=== PATIENT | male | born 1940 | race Caucasian/White ===

== ENCOUNTER 2019-02-23 12:43 | Observation (INO) ==
[~2019-02-23 12:43] MED LIST: NITROGLYCERIN TOP ONE
[2019-02-23] MEDS ORDERED: SALINE LOCK IV FLUID XX ONE (13:00)
[2019-02-23] MEDS ORDERED: TYLENOL PO PRN ×2 (13:00)
[2019-02-23] MEDS ORDERED: ZOFRAN IV PRN ×2 (13:00)
[2019-02-23] MEDS ORDERED: NS 1,000 ML IV ONE (13:00)
[2019-02-23 13:31] LABS: HEMATOCRIT 42.2 % (42.0-52.0); MCH 29.5 PG (27-31); MCHC 33.2 g/dL (33-37); MCV 88.8 FL (81-99); MPV 11.3 FL (7.4-10.4); RBC 4.75 XMIL (4.7-6.1); RDW 13.4 % (11.5-14.5); WBC 6.58 X1000 (4.8-10.8)
--- NOTE | 2019-02-23 13:39 | Diag Imaging Result Doc PS360 ---
CHEST-2 VIEWS - 02/23/2019 INDICATION: CAD COMPARISON: 10/25/2017 FINDINGS: The lungs are normally expanded and clear. Heart size and mediastinal contours are normal. No pneumothorax or pleural effusion. Stable surgical clips in the right upper quadrant. IMPRESSION: Negative exam. Electronically signed by Frantz Gauthier 02/23/2019 1:36 PM
[2019-02-23 14:05] LABS: AGAP 9; BUN 12 mg/dL (8-22); CALCIUM 9.6 mg/dL (8.8-10.2); CHLORIDE 103 mmol/L (98-107); COSMO 279; CREATININE 0.9 mg/dL (0.7-1.2); ESTIMATED GFR > 60; GLUCOSE 104 mg/dL (70-104); POTASSIUM 4.9 mmol/L (3.5-5.1); SODIUM 140 mmol/L (136-145); TCO2 28 mmol/L (25-35)
--- NOTE | 2019-02-23 14:20 | EKG Report ---
Test Performed on : 02/23/2019 1:12:33 PM Test Reason : CAD Blood Pressure : / mmHG Vent. Rate : 058 BPM Atrial Rate : 058 BPM P-R Int : 152 ms QRS Dur : 098 ms QT Int : 442 ms P-R-T Axes : 029 008 041 degrees QTc Int : 433 ms Sinus bradycardia. with frequent premature ventricular complexes. Otherwise normal ECG When compared with ECG of 25-OCT-2017 13:51, premature ventricular complexes. are now present premature atrial complexes. are no longer present Confirmed by Jim HAYDNE, Kedar Silva ([id number]) on 02/24/2019 4:19:09 PM
[2019-02-23] MEDS ORDERED: NORCO-5 PO PRN (17:52)
[2019-02-23] MEDS: LOVENOX SUBQ SCH (19:50)
[2019-02-23] MEDS ORDERED: AMBIEN PO SCH (21:00)
[2019-02-24] MEDS ORDERED: PRILOSEC PO SCH (07:00)
[2019-02-24] MEDS ORDERED: NS 500 ML IV ONE (08:13)
--- NOTE | 2019-02-24 08:42 | PROGRESS NOTE ---
DATE: 02/24/2019 SUBJECTIVE: Mr. Watkins has a history of known ischemic heart disease. He has had previous angioplasty and stenting of the LAD in 2010, and the RCA in 2014. He was admitted to [facility] for evaluation of unstable angina. He has had no further episodes of chest pain. Two sets of cardiac enzymes have been within normal limits. His pulse has been low. His pulses ranged from 44 to 51. He reports that he feels dizzy and lightheaded. He does have a history of gastroparesis. He has tried an anti gastroparetic diet without significant improvement. He had an adverse reaction to Reglan in the past. Dr. Camacho had tried domperidone 10 mg prior to each meal with improvement in his symptoms. He was not felt to be a candidate for a gastric pacemaker at [facility]. OBJECTIVE: Temperature 98.1 degrees, pulse 51, respirations 16, and BP 117/57.CV: Regular rate and rhythm. Lungs: Clear. Abdomen: Soft and nontender with active bowel sounds. ASSESSMENT AND PLAN: Unstable angina with a history of known ischemic heart disease. He has had no further episodes of chest pain. His blood pressure has been low at times during the night. Systolic blood pressures have been in the high 90s. I will stop both the Toprol-XL as well as the topical nitrates. We will proceed with a Scaleform GXT with rest stress protocol. cc: Nima Delgado MD
[2019-02-24] MEDS: ASPIRIN PO SCH ×2 (08:56→13:19)
[2019-02-24] MEDS ORDERED: DEXILANT PO SCH (09:00)
[2019-02-24] MEDS ORDERED: TOPROL XL PO SCH (09:00)
[2019-02-24] MEDS ORDERED: ASPIRIN EC PO SCH (09:00)
[2019-02-24] MEDS ORDERED: LEXISCAN ONE (11:48)
[2019-02-24] MEDS: LOVENOX SUBQ SCH (13:20)
[2019-02-24 14:00] VITALS: BP 130/69
--- NOTE | 2019-02-24 14:06 | Diag Imaging Result Document ---
PROCEDURE NAME: MYOCARDIAL PERF SCAN, STR/REST - 02/24/2019 SUMMARY: The patient was administered 12.2 mCi of technetium-99m sestamibi after which resting cardiac images were obtained. The patient subsequently was administered Lexiscan 0.4 mg intravenously after which the heart rate went from 70 beats per minute to 93 beats per minute and the blood pressure went from 166/78 to 140/70. With Lexiscan, the patient reported some midsternal chest burning, which resolved with recovery. Following administration of Lexiscan, the patient was administered 35.9 mCi of technetium-99m sestamibi, after which gated stress cardiac images were obtained. Baseline ECG demonstrated sinus bradycardia. With Lexiscan, there were no diagnostic ST-segment changes. Occasional premature ventricular complex was observed. SPECT images were reconstructed in the short, horizontal, and vertical long axis. Review of these images demonstrated moderately diminished activity in the inferior wall on stress images, which appears similar on resting images. No significant reversibility is evident. Gated images demonstrate a calculated left ventricular ejection fraction of 63% with symmetrical wall motion/thickening. CONCLUSIONS: 1. Adequate response to Lexiscan. 2. Clinically, the patient reported moderate burning chest discomfort with Lexiscan. 3. Electrocardiographically, there were no diagnostic ST-segment changes on ECG. 4. Lexiscan sestamibi images demonstrate fixed moderately diminished activity in the inferior wall with corresponding preserved regional wall motion most consistent with diaphragmatic attenuation artifact, although prior transmural inferior infarction cannot entirely be excluded. There is no convincing scintigraphic evidence of inducible myocardial ischemia. Normal left ventricular systolic function demonstrated. cc: MD Nima Duran MD
--- NOTE | 2019-02-25 13:13 | DISCHARGE SUMMARY ---
ADMISSION DATE: 02/23/2019 DISCHARGE DATE: 02/24/2019 DISCHARGE DIAGNOSES: 1. Unstable angina in the setting of known ischemic heart disease. 2. Gastroesophageal reflux disease. 3. Gastroparesis. 4. Chronic low back pain secondary to lumbar spinal stenosis. DISCHARGE INSTRUCTIONS: 1. Return to clinic in one week to see me, Dr. Riley Delgado, in anticipation of a transition of care visit. 2. Activity as tolerated. 3. Healthy heart diet. MEDICATIONS: 1. Dexilant 60 mg daily. 2. [place] 10/325 1 q.12 hours p.r.n. pain. 3. Ambien 10 mg at bedtime p.r.n. insomnia. 4. Aspirin 81 mg daily. 5. Plavix 75 mg daily. 6. Zofran 4 mg q.6 hours p.r.n. nausea. 7. Souwaynsmet19 mg t.i.d. with meals. HOSPITAL COURSE: This is a well-developed, well-nourished, 78-year-old gentleman in no apparent distress. He is afebrile. Vital signs are stable. CV: Regular rate and rhythm. Lungs: Clear. Abdomen: Soft, nontender, with active bowel sounds. DISCUSSION: Mr. Watkins has a longstanding history of ischemic heart disease. He had a previous coronary catheterization in 2014 in which he had angioplasty and stenting of the RCA. He had previous stenting of the LAD in 2010. He was treated with aspirin topical nitrates, and he ruled out for myocardial ischemia by serial enzymes. We performed a Persantine Myoview GXT with rest stress protocol. No perfusion abnormalities were noted. He was mildly orthostatic on admission. We bolused him with a total of 1.5 liters of NS with resolution of the orthostasis. He still had episodes of dizziness. He does have underlying vertigo. His heart rate was in the 40s on metoprolol. I have stopped the metoprolol and his heart rate jumped into the high 60s. I suspect that the bradycardia was contributing to his dizziness. He does have a history of gastroparesis. Unfortunately, he continues with chronic nausea, early satiety and diminished appetite. He has tried an anti gastroparetic diet without improvement. He was unable to tolerate Reglan. We will try a trial of Domperidone 10 mg t.i.d. with meals. Having reached maximum hospital benefit, the patient was discharged in stable condition. cc: Nima Delgado MD [facility]
== END 2019-02-24 17:26 | disposition home or self-care (01) ==
LOC: DIRADM → 4N 12:43
PROVIDERS: ADMIT Internal Medicine; ATTEND Internal Medicine
CPT/HCPCS: 71020; 71046; 78452; 80048; 82550; 84484; 85027; 93005; 93010; 93017; 94761; 94799; A9270; A9500; J1650; J2785; J7030; J7040

== ENCOUNTER 2019-06-04 16:31 | Inpatient (IN) ==
[2019-06-04] MEDS ORDERED: NITROGLYCERIN TOP ONE (17:03)
[2019-06-04] MEDS ORDERED: ASPIRIN PO ONE (17:03)
--- NOTE | 2019-06-04 17:11 | EKG Report ---
Test Performed on : 06/04/2019 4:38:51 PM Test Reason : CP Blood Pressure : / mmHG Vent. Rate : 068 BPM Atrial Rate : 068 BPM P-R Int : 152 ms QRS Dur : 096 ms QT Int : 422 ms P-R-T Axes : 049 027 055 degrees QTc Int : 448 ms Sinus rhythm. with occasional premature ventricular complexes. Otherwise normal ECG When compared with ECG of 23-FEB-2019 13:12, No significant change was found Unconfirmed Result
[2019-06-04 17:33] LABS: BASO# 0.01 X1000 (0.0-0.2); BASO% 0.1 % (0.0-0.8); EOS# 0.18 X1000 (0.0-0.7); EOS% 2.6 % (0.0-10.0); HEMATOCRIT 41.1 % (42.0-52.0); HEMOGLOBIN 13.8 g/dL (14.0-18.0); IMM GRAN# 0.02 X1000 (0.0-0.04); IMM GRAN% 0.3 % (0.0-0.5); LYMPH# 1.66 X1000 (1.2-3.4); LYMPH% 24.2 % (20.5-51.1); MCHC 33.6 g/dL (33-37); MCV 89.3 FL (81-99); MONO# 0.56 X1000 (0.11-0.59); MONO% 8.2 % (1.7-9.3); MPV 11.7 FL (7.4-10.4); NEUT# 4.42 X1000 (1.4-6.5); NEUT% 64.6 % (42.2-75.2); PLT 186 X1000 (130-400); RDW 12.9 % (11.5-14.5); WBC 6.85 X1000 (4.8-10.8)
--- NOTE | 2019-06-04 17:43 | Diag Imaging Result Doc PS360 ---
EXAM: CHEST-2 VIEWS 06/04/2019 HISTORY: chest pain TECHNIQUE: PA and lateral chest COMMENT: There is no evidence of acute cardiac or pulmonary disease. Compared to 02/23/2019 there has been no significant change in the appearance the chest. IMPRESSION: No evidence of acute disease. Electronically signed by Adán Ford 06/04/2019 5:41 PM
[2019-06-04 17:49] LABS: INR 1.08; PROTIME 14.1 Seconds (11.0-16.0)
[2019-06-04 17:50] LABS: PTT 31.3 Seconds (22.3-41.8)
--- NOTE | 2019-06-04 17:58 | PROVIDER DOCUMENTATION ---
This chart was entered by Kal Sexton Scribe, acting as scribe for Rick Horowitz MD. HPI-Chest Pain - General Chief Complaint: Chest Pain Stated Complaint: CP SOB L-ARM DISCOMFORT Time Seen by Provider: 06/04/19 16:39 Source: patient Allergies/Adverse Reactions: Patient Allergies Allergy/AdvReac Type Severity Reaction Status Date / Time Pwocicd-Wff-Gzy Reductase Allergy Unknown Unknown Verified 05/31/18 12:51 Inhibitor ciprofloxacin [From Cipro] AdvReac Intermediate Unknown Verified 05/31/18 12:51 ciprofloxacin HCl * AdvReac Intermediate Unknown Verified 05/31/18 12:51 [From Cipro] Home Medications: Home Medication List Medication Instructions Recorded Confirmed Last Taken Type Dexlansoprazole [Dexilant] 60 mg PO DAILY 03/20/15 02/23/19 02/23/19 08:00 History Hydrocodone/Acetaminophen [[place] 10 mg PO Q12H PRN PRN 10/25/17 02/23/19 02/23/19 08:00 History 10-325 Tablet] Zolpidem Tartrate [Ambien] 10 mg PO QHS 05/25/18 02/23/19 02/22/19 21:00 History Aspirin [Aspirin EC] 81 mg PO DAILY #0 06/01/18 02/23/19 02/23/19 08:00 Rx Clopidogrel Bisulfate [Plavix] 75 mg PO DAILY #0 06/01/18 02/23/19 02/23/19 08:00 Rx Ondansetron HCl [Zofran] 4 - 8 mg PO Q6H PRN 02/23/19 02/23/19 02/23/19 12:30 History - History of Present Illness-CP Nature of Presenting Problem: Pt is a 79 yom who presents to the ED with a CC of chest pain. Pt reports he began having chest pain today and describes his chest pain as a tightness. Pt states his pain goes down his left arm. Pt also complains of having shortness of breath, being dizzy, tingling in his feet, having palpitations, and feeling faint. Pt has a cardiac hx, see nurse's note. Pt reports a hx of gastroporesis and states he has not been able to eat this week. Pt reports his current pain level to be a 6/10. Pt reports he has nitro at home but states he did not take one today. Pt reports taking a a 81 mg asprin and an yanely-seltzer today. Upon examination the pt had frequent unifocal PVCs and an irregular heartbeat. Location: reports: central Chest Pain Radiation: reports: arms (Left arm) Quality of Pain: reports: tightness Severity in ED: mild Onset/Duration: 1-3 hours ago Timing: still present Associated Symptoms: reports: dizziness, shortness of breath, weakness Nitro Today/Relief: no nitro taken today Aspirin Treatment Today: 81 mg x 1, provided at home Prior Chest Pain/Cardiac Workup: reports: echocardiography, stress test Similar Symptoms Previously?: Yes Recently Seen Here or By Another Healthcare Provider: No Review of Systems - Adult - REVIEW OF SYSTEMS - ADULT Constitutional: reports: see HPI Eyes: reports: no symptoms reported Ears, Nose, Mouth & Throat: reports: no symptoms reported Cardiovascular: reports: see HPI, chest pain, palpitations. denies: edema Respiratory: reports: see HPI, shortness of breath Gastrointestinal: reports: no symptoms reported Genitourinary: reports: no symptoms reported Musculoskeletal: reports: see HPI, joint pain, other Integumentary: reports: no symptoms reported Neurological: reports: see HPI, dizziness/vertigo Psychiatric: reports: no symptoms reported Endocrine: reports: no symptoms reported Hematologic/Lymphatic: reports: no symptoms reported Allergic/Immunologic: reports: no symptoms reported All Other Systems: Reviewed and Negative Past History - Adult - PAST MEDICAL HISTORY-ADULT Review of Records: reports: Old Records Reviewed, Nursing Assessment Review, Medications Reviewed, Social history reviewed & non-contributory. Major Childhood Illnesses: reports: denies history Cardiovascular: reports: cardiac disease, CAD, HTN, hyperlipidemia, palpitations (PVC's) Respiratory: reports: denies history Gastrointestinal: reports: GERD Obstetrical/Gynecological: reports: denies history Genitourinary: reports: other (BPH) Musculoskeletal: reports: denies history Neurological: reports: denies history Endocrine/Immune: reports: denies history Other Conditions: reports: denies history - PRIOR SURGERIES/PROCEDURES Surgical/Procedure History: reports: cholecystectomy, cardiac stent (08/24) - IMMUNIZATION STATUS Childhood Immunizations: See Nurse Assessment Flu Vaccine: See Nurse Assessment - FAMILY HISTORY Family History: reviewed, not pertinent - SOCIAL HISTORY Smoking: denies, non-smoker Substance Use: none/never, denies Alcohol Use Frequency: never Physical Exam-General - PHYSICAL EXAM-ADULT Initial Vital Signs Reviewed: Yes - CONSTITUTIONAL General Appearance: alert, mild distress - EYES Eyes: PERRL/EOMI - HEAD, EARS, NOSE, MOUTH & THROAT HENMT: moist mucous membranes - NECK Neck: non-tender, full range of motion - RESPIRATORY Respiratory: chest non-tender, lungs clear, normal breath sounds, no pleuratic chest pain, no respiratory distress, no accessory muscle use - CARDIOVASCULAR Cardiovascular: no edema, no gallop, no JVD, no murmur, other (Irregular heart beat and frequent unifocal PVCs) - GASTROINTESTINAL (ABDOMEN) Abdominal Exam: non tender, soft - MUSCULOSKELETAL Extremity: normal range of motion, non-tender - SKIN Integumentary: normal color, warm/dry - NEUROLOGIC Neurologic: grossly normal, no motor/sensory deficits - PSYCHIATRIC Psych/Mental Status: normal mood/affect, normal thought content, normal thought process, oriented x 3 Progress - PLAN OF CARE/RESULTS Progress/Plan/Lab Results: Vital Signs - 8 hr 06/04/19 16:34 06/04/19 16:51 06/04/19 18:17 Temperature 97.8 F Pulse Rate 66 65 84 Respiratory Rate 18 22 18 Blood Pressure 174/73 144/86 154/107 O2 Sat by Pulse Oximetry 99 99 98 Laboratory Results - last 24 hr 06/04/19 06/04/19 06/04/19 17:10 17:10 17:10 WBC 6.85 RBC 4.60 L Hgb 13.8 L Hct 41.1 L MCV 89.3 MCH 30.0 MCHC 33.6 RDW Std Deviation 12.9 Plt Count 186 MPV 11.7 H Immature Gran % (Auto) 0.3 Neut % (Auto) 64.6 Lymph % (Auto) 24.2 [place]lan % (Auto) 8.2 Eos % (Auto) 2.6 Baso % (Auto) 0.1 Immature Gran # (Auto) 0.02 Neut # (Auto) 4.42 Lymph # (Auto) 1.66 [place]lan # (Auto) 0.56 Eos # (Auto) 0.18 Baso # (Auto) 0.01 PT INR PTT (Actin FS) Sodium 141 Potassium 4.4 Chloride 103 Carbon Dioxide 27 Anion Gap 11 BUN 12 Creatinine 0.8 Estimated GFR/1.73 m2 > 60 BUN/Creatinine Ratio 15 Glucose 99 Calculated Osmolality 281 Calcium 9.4 Total Bilirubin 0.34 AST 20 ALT 11 Alkaline Phosphatase 74 Creatine Kinase 117 Troponin T Rsy-S-Udjprhaeqwd Pept 114 Total Protein 6.6 Albumin 4.4 Globulin 2.2 Albumin/Globulin Ratio 2.0 06/04/19 06/04/19 17:10 17:10 WBC RBC Hgb Hct MCV MCH MCHC RDW Std Deviation Plt Count MPV Immature Gran % (Auto) Neut % (Auto) Lymph % (Auto) Harlan % (Auto) Eos % (Auto) Baso % (Auto) Immature Gran # (Auto) Neut # (Auto) Lymph # (Auto) [place]lan # (Auto) Eos # (Auto) Baso # (Auto) PT 14.1 INR 1.08 PTT (Actin FS) 31.3 Sodium Potassium Chloride Carbon Dioxide Anion Gap BUN Creatinine Estimated GFR/1.73 m2 BUN/Creatinine Ratio Glucose Calculated Osmolality Calcium Total Bilirubin AST ALT Alkaline Phosphatase Creatine Kinase Troponin T < 0.010 Iri-H-Bzltjbemjbh Pept Total Protein Albumin Globulin Albumin/Globulin Ratio Orders Category Date Time Status Cardiac Monitoring DIRECTED Care 06/04/19 16:51 Active Oxygen Therapy- ED Nursing DIRECTED Care 06/04/19 16:51 Active Saline Loc NOW Care 06/04/19 16:51 Active CHEST-2 VIEWS [RAD] Stat Exams 06/04/19 16:51 Completed CBC WITH ELECTRONIC DIFF [HEME] Stat Lab 06/04/19 17:10 Completed CK PROFILE [SP CHEM] Stat Lab 06/04/19 17:10 Completed COMPREHENSIVE METABOLIC PANEL [CHEM] Stat Lab 06/04/19 17:10 Completed PRO B-NATRIURETIC PEPTIDE Stat Lab 06/04/19 17:10 Completed PROTIME WITH INR [COAG] Stat Lab 06/04/19 17:10 Completed PTT [COAG] Stat Lab 06/04/19 17:10 Completed TROPONIN T Stat Lab 06/04/19 17:10 Completed Aspirin Med 06/04/19 17:03 Discontinued 324 mg PO NOW ONE Morphine Med 06/04/19 18:09 Discontinued 4 mg IV NOW ONE Nitroglycerin Med 06/04/19 17:03 Discontinued 0.5 inch TOP NOW ONE Nitroglycerin Sl [Nitroglycerin] Med 06/04/19 18:11 Discontinued 0.4 mg SL NOW ONE Ondansetron [Zofran] Med 06/04/19 18:10 Discontinued 4 mg IV NOW ONE CP/SOB/Palp >45 yrs of Age Stat Oth 06/04/19 16:50 Ordered EKG [EKG] Stat Ther 06/04/19 16:35 Draft EKG [EKG] Stat Ther 06/04/19 18:10 Ordered Result Diagrams: 06/04/19 17:10 06/04/19 17:10 - REASSESSMENT Reassessment #1 Time Reassessed: 18:12 Status: worsening (I went to routinely reassess Mr. Watkins, he reports his chest pain is "worse." Will give s/l NTG, MS, repeat EKG. plan to admit, presumptive unstable angina.) - EKG 1 Time of EKG reading by physician:: 16:46 EKG Read and Signed by:: Rick Horowitz EKG Interpretation (*Must complete 3 of following elements*): Normal (Sinus rhythm with occasional premature ventricular complexes, otherwise normal ECG) Rate: 68 Rhythm: Sinus rhythm with occasional premature ventricular complexes [place]: normal QRS: normal TX Interval: normal ST Wave: normal - XRAY 1 XRAY: Bilateral XRAY Study: Chest Impression: See EMR Report (EXAM: CHEST-2 VIEWS 06/04/2019 HISTORY: chest pain TECHNIQUE: PA and lateral chest COMMENT: There is no evidence of acute cardiac or pulmonary disease. Compared to 02/23/2019 there has been no significant change in the appearance the chest. IMPRESSION: No evidence of ac delmy disease. Electronically signed by Adán Ford 06/04/2019 5:41 PM 06/04/191740 Interpreting Physician: Adán Ford MD Dictated Date/Time: 06/04/191740 cc: Rick Horowitz MD; Kimberli Delgado MD) - CONSULTS/PCP/HOSPITALIST Notification #1 *Consult/PCP/Hospitalist*: Juan Pablo Consult Disposition: Will see in ED, Admit Departure - Departure Date of Disposition Decision: 06/04/19 Time of Disposition Decision: 19:02 DIAGNOSIS: Intermediate coronary syndrome Disposition: ADMITTED INPATIENT 09 Certified Medical Emergency: Emergent Condition: Stable Additional Freetext Instructions: ED Follow Up Instructions: You have been treated by a care provider in the Emergency Department. These instructions are being provided to you so you can have an understanding of how to care for yourself upon discharge. Upon discharge from the Emergency Department, you are responsible for making arrangements for follow-up care by a physician of your choice. Take all prescribed medications as directed. Return to the Emergency Department immediately for any new or worsening symptoms. You may call the Physician Referral phone number at [phone] to obtain a list of Physicians who are taking new patients. Referrals and Follow-Ups: Kimberli Delgado MD [Primary Care Provider] - - Critical Care Note This patient required my direct & personal management of CC.: No Attestation - Physician/ OBIE Attestation Patient care was provided by Advanced Practice Provider:: No The physician spent face to face time with patient:: Yes Advanced Practice Provider documentation review:: Supervising physician onsite and consulted in the evaluation and care of this patient. The physician did have a face to face encounter with the patient. This chart was documented by the indicated scribe, (Kal Sexton Scribe) and accurately reflects the services I performed and decisions made by me, Rick Horowitz MD, as attested by the provider's signature.
[2019-06-04 18:03] LABS: AGAP 11; ALBUMIN 4.4 g/dL (3.5-5.0); ALKALINE PHOSPHATASE 74 U/L (32-122); BUN 12 mg/dL (8-22); CALCIUM 9.4 mg/dL (8.8-10.2); CHLORIDE 103 mmol/L (98-107); CK PROFILE 117 U/L (24-204); COSMO 281; CREATININE 0.8 mg/dL (0.7-1.2); ESTIMATED GFR > 60; GLUCOSE 99 mg/dL (70-104); GOT 20 U/L (10-34); GPT 11 U/L (10-44); POTASSIUM 4.4 mmol/L (3.5-5.1); SODIUM 141 mmol/L (136-145); TCO2 27 mmol/L (25-35); TOTAL BILIRUBIN 0.34 mg/dL (0.20-1.00); TOTAL PROTEIN 6.6 g/dL (6.3-8.3)
[2019-06-04] MEDS ORDERED: MORPHINE IV ONE ×2 (18:09→19:06)
[2019-06-04] MEDS ORDERED: ZOFRAN IV ONE ×2 (18:10→19:06)
[2019-06-04] MEDS ORDERED: NITROGLYCERIN SL ONE (18:11)
--- NOTE | 2019-06-04 20:01 | EKG Report ---
Test Performed on : 06/04/2019 6:38:04 PM Test Reason : CP Blood Pressure : / mmHG Vent. Rate : 074 BPM Atrial Rate : 074 BPM P-R Int : 156 ms QRS Dur : 090 ms QT Int : 428 ms P-R-T Axes : 025 016 035 degrees QTc Int : 475 ms Sinus rhythm. with frequent and consecutive premature ventricular complexes. Abnormal ECG When compared with ECG of 04-JUN-2019 16:38, (Unconfirmed) No significant change was found Unconfirmed Result
[2019-06-04] MEDS: AMBIEN PO PRN (22:59)
--- NOTE | 2019-06-05 01:23 | HISTORY AND PHYSICAL ---
CHIEF COMPLAINT: Chest pain. HISTORY OF PRESENT ILLNESS: Mr. Watkins is a 79-year-old gentleman followed by Dr. Riley Delagdo for multiple medical problems including coronary artery disease, gastroparesis, postherpetic neuralgia and benign prostatic hypertrophy. He was "piddling around" at home this afternoon and noted the onset of chest pain which fairly rapidly became more severe about 6/10. It was not associated with any nausea or diaphoresis, but he also noticed some pain in his left elbow region that seem to be connected. He previously had similar pains from angina and came to the emergency room. He required 2 doses of 4 mg of morphine intravenously to get free of pain and has remained so for the past 4 hours. His initial EKG showed occasional PVCs but otherwise was unremarkable without abnormal Q waves or ischemic ST changes. His laboratory including CPKs and troponins was within normal except for very mild anemia. His cardiac history extends back to approximately 2011 when he underwent stenting of the left anterior descending coronary artery. In 2014, he again presented with chest pain and cardiac catheterization suggested a right coronary lesion and he had this stented as well. He has since had echocardiograms documenting normal left ventricular function. Three months ago he was admitted here with chest pain fairly typical for angina and had an unremarkable Lexiscan. At that time he was noted to be somewhat bradycardic and his metoprolol was discontinued. He also states that his ginner helper, Dr. Alberto, has recently referred him to an employee services manager due to frequent PVCs and he was tried on some flecainide which seemed to make him worse and he stopped it. He has an appointment to return to see Dr. Bowers about "ablation." PAST MEDICAL HISTORY: Approximately 7 years ago he had an episode of shingles in the left parietal scalp which apparently involved the vagus nerve as well. He seemed to develop a particularly malignant form of gastroparesis after this and has struggled with chronic nausea and vomiting. He states that his maintenance services dispatcher is Dr. Sha Camacho. He also treats him for esophageal reflux. SURGICAL HISTORY: Remarkable for transurethral resection of the prostate and laparoscopic cholecystectomy. ALLERGIES: He is unable to tolerate multiple statins. He has had previous hives with Cipro antibiotic. HOME MEDICATIONS: Aspirin 81 mg daily, Plavix 75 mg daily, Luana 10 two daily p.r.n. for shingles pain, zolpidem 10 mg at bedtime as needed for sleep. He also takes Zofran as needed for nausea, Dexilant 60 mg daily. FAMILY HISTORY: Both of his parents lived to advanced ages. Brother at age 66 was diagnosed with coronary disease and has had a coronary artery bypass grafting performed. REVIEW OF SYSTEMS: General: No fever, chills, night sweats, weight loss. Neurologic: No headache, history of seizures or strokes. HEENT: Vision and hearing are adequate without recent changes. Cardiovascular: He has frequent palpitations but denies any syncope. Denies shortness of breath, dyspnea on exertion, orthopnea or PND. Respiratory: No cough, shortness of breath, sputum production. Gastrointestinal: Normal appetite. No difficulty swallowing. Minimal faint heartburn, on a PPI. Has frequent nausea and vomiting. Genitourinary: No dysuria. Occasional nocturia. Endocrine: No history of diabetes or thyroid disorders. Musculoskeletal: No muscle aches or abnormal joint pain. Psychological: He denies anxiety, depression or memory loss. Dermatologic: No rash or itching. PHYSICAL EXAMINATION: VITAL SIGNS: Blood pressure 114/61, heart rate of 65, O2 saturation is 100% on room air. GENERAL APPEARANCE: Alert and cooperative gentleman who appears younger than his stated age in no acute distress. SKIN: Warm and dry with adequate turgor. No rash is noted. HEENT: Pupils equal, round, reactive to light. Extraocular movements intact. Oropharynx is benign. NECK: Supple with no adenopathy, JVD, thyromegaly or bruits. LUNGS: Clear to auscultation and percussion bilaterally. CARDIAC: Regular rate and rhythm with slightly distant S1 and S2. No S3, S4 or murmurs. ABDOMEN: Soft, flat and nontender with active bowel sounds. No guarding or rebound tenderness is present. GENITOURINARY/RECTAL: Exams omitted. EXTREMITIES: No cyanosis, clubbing or edema. ASSESSMENT: 1. Chest pain fairly typical for angina in an elderly gentleman with a known history of coronary artery disease, previous stents and statin intolerance. 2. Chronic postherpetic neuralgia pain requiring chronic opioid therapy. 3. Gastroparesis. PLAN: I feel he has a moderate chance of this being exacerbation of ischemic heart disease. We will do serial enzymes and EKGs. We will consult Cardiology in the morning and obtain lipid profile fasting. May be a candidate for PCSK9 drugs. cc: MD Nima Gilbert MD MTDD
[2019-06-05] MEDS: PRILOSEC PO SCH (06:05)
[2019-06-05 07:49] LABS: CHOLESTEROL 138 mg/dL (0-200); HDL 42 mg/dL (35-55); LDL 80 mg/dL; TRIGLYCERIDES 79 mg/dL (39-160); VLDL 16 mg/dL
[2019-06-05] MEDS: NORCO-10 PO PRN (09:20)
[2019-06-05] MEDS: ASPIRIN EC PO SCH (09:21)
[2019-06-05] MEDS: PLAVIX PO SCH (09:21)
[2019-06-05] MEDS: ZOFRAN ODT PO PRN ×3 (10:43→18:36)
[2019-06-05] MEDS ORDERED: ZOFRAN ONE (14:05)
--- NOTE | 2019-06-05 14:07 | CONSULTATION ---
DATE OF CONSULTATION: 06/05/2019 CARDIOLOGY CONSULTATION: IMPRESSION: 1. Recurrent chest pain suspicious for recurrent angina although no objective findings of myocardial ischemia on initial lab. 2. Symptomatic frequent ventricular ectopy. 3. Atherosclerotic coronary artery disease. A. Status post coronary angioplasty/stenting of left anterior descending coronary in 2011. B. Status post coronary angioplasty/stenting of right coronary artery in 2014. C. Most recent stress myocardial perfusion study with Lexiscan sestamibi study demonstrating fixed inferior defect but no significant reversibility and normal left ejection fraction. 4. Hyperlipidemia with poor tolerance of statins. 5. Gastroesophageal reflux disease. RECOMMENDATIONS: Favor definitive evaluation from a coronary standpoint with left heart catheterization, selective coronary angiography, and possible coronary angioplasty if indicated. This was discussed in detail with the patient and his including potential hazards. Possibility of a need for transfer to [facility] is also discussed with the patient in the event he needed coronary stent. He acknowledged this before going and wished to proceed. HISTORY: This 79-year-old white male with past history of atherosclerotic coronary artery disease as outlined above, symptomatic ventricular ectopy, hyperlipidemia, and statin intolerance was admitted to the emergency room for progression of chest pain as well as palpitations. He relates that yesterday afternoon while doing only modest activity he started having increased tendency for palpitations characterized as a momentary skip. He actually had been having a bit more of this throughout the day yesterday. He subsequently started to feel chest pressure and some burning discomfort in the chest that was rather persistent for at least an hour prior to his decision to come to the emergency room for evaluation. He had taken 1 nitroglycerin without relief. In the emergency room, he was treated with topical nitroglycerin and parenteral morphine. Discomfort slowly faded away. He has not had any recurrence. He has been having trouble with symptomatic PVCs. Lexiscan myocardial perfusion study back in February demonstrated fixed inferior defect with preserved wall motion but no significant reversible defects. Continued medical management was felt most appropriate at that time. He has tried some low-dose flecainide for his PVCs but did not tolerate this very well as he felt like it made his palpitations worse. He is being considered for possible ablation of PVC focus. PAST MEDICAL HISTORY: 1. Atherosclerotic coronary disease as outlined above. 2. Hyperlipidemia with poor tolerance of statins. 3. Gastroesophageal reflux disease. 4. Gastroparesis. 5. Prostate hypertrophy. PAST SURGICAL HISTORY: Includes transurethral resection of the prostate and laparoscopic cholecystectomy. ALLERGIES: He is allergic or intolerant to Ciprofloxacin and has been unable to tolerate multiple statins. He is considered statin intolerant. MEDICATIONS PRIOR TO ADMISSION: As listed. SOCIAL HISTORY: He is . 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 He does not smoke> He does not use alcohol. FAMILY HISTORY: Negative for premature coronary disease. He does have a family history of coronary disease with older age clinical presentation. REVIEW OF SYSTEMS: Pulmonary: Noncontributory beyond history of present illness. Gastrointestinal: Noncontributory beyond history of present illness. Constitutional: Noncontributory beyond history of present illness. Remainder of review of systems negative/noncontributory beyond history of present illness with 14 total systems reviewed. PHYSICAL EXAMINATION: General: This is a pleasant, older white male in no distress. Vital signs: Blood pressure 134/62, heart rate 56, oxygen saturation 99% to 100% on room air. HEENT: Extraocular movements intact. Mucous membranes are moist. Neck: Supple without jugular venous distention. There are no carotid bruits. Chest: Clear to auscultation bilaterally. Cardiac Exam: Reveals a regular rate and rhythm without appreciable murmur or gallop. Abdomen: Soft. Bowel sounds are normal. Extremities: Without edema. Neurologic: Exam reveals him to be alert and fully oriented. Speech is fluent. Moves all 4 extremities equally well. Skin: Warm and dry. Psychiatric: Reveals mood to be appropriate. DIAGNOSTIC DATA: A 12-lead EKG demonstrates sinus rhythm with frequent ventricular ectopy. LABORATORY DATA: Includes white blood cell count 6.85, hematocrit 41.1, hemoglobin 13.8, platelet count 186,000. Pro time 14.1. INR 1.08. PTT 31.3. Sodium 141, potassium 4.4, chloride 103, carbon dioxide 27, BUN 12, creatinine 0.8. Initial troponin less than 0.01. Followup troponin less than 0.01. CPK 117. Triglycerides 79, total cholesterol 138, LDL cholesterol 80, HDL cholesterol 42. cc: MD Nima Duran MD
--- NOTE | 2019-06-05 16:15 | EKG Report ---
Test Performed on : 06/05/2019 11:05:01 AM Test Reason : coronary artery disease Blood Pressure : / mmHG Vent. Rate : 055 BPM Atrial Rate : 055 BPM P-R Int : 162 ms QRS Dur : 090 ms QT Int : 438 ms P-R-T Axes : 050 035 054 degrees QTc Int : 419 ms Sinus bradycardia. Otherwise normal ECG When compared with ECG of 04-JUN-2019 18:38, (Unconfirmed) premature ventricular complexes. are no longer present QT has shortened Confirmed by Juan Pablo HAYDEN, Rikki Colin ([id number]) on 06/05/2019 7:34:26 PM
[2019-06-05] MEDS ORDERED: NORCO-5 PO ONE (17:10)
[2019-06-05] MEDS: AMBIEN PO PRN (22:02)
[2019-06-06 06:05] LABS: BASO# 0.02 X1000 (0.0-0.2); BASO% 0.4 % (0.0-0.8); EOS# 0.34 X1000 (0.0-0.7); EOS% 6.3 % (0.0-10.0); HEMATOCRIT 39.4 % (42.0-52.0); HEMOGLOBIN 13.1 g/dL (14.0-18.0); LYMPH# 1.45 X1000 (1.2-3.4); MCH 29.9 PG (27-31); MCHC 33.2 g/dL (33-37); MONO# 0.47 X1000 (0.11-0.59); MONO% 8.7 % (1.7-9.3); MPV 11.4 FL (7.4-10.4); NEUT% 57.6 % (42.2-75.2); PLT 171 X1000 (130-400); RBC 4.38 XMIL (4.7-6.1); WBC 5.38 X1000 (4.8-10.8)
[2019-06-06] MEDS: PRILOSEC PO SCH (06:07)
[2019-06-06 06:15] LABS: INR 1.12; PROTIME 14.5 Seconds (11.0-16.0)
[2019-06-06 06:16] LABS: PTT 31.7 Seconds (22.3-41.8)
[2019-06-06 06:28] LABS: AGAP 11; ALB/GLOB RATIO 1.5; ALBUMIN 3.7 g/dL (3.5-5.0); ALKALINE PHOSPHATASE 63 U/L (32-122); BUN 9 mg/dL (8-22); CALCIUM 9.3 mg/dL (8.8-10.2); CHLORIDE 106 mmol/L (98-107); COSMO 282; CREATININE 0.8 mg/dL (0.7-1.2); ESTIMATED GFR > 60; GLUCOSE 101 mg/dL (70-104); GOT 21 U/L (10-34); GPT 10 U/L (10-44); SODIUM 142 mmol/L (136-145); TCO2 25 mmol/L (25-35); TOTAL BILIRUBIN 0.52 mg/dL (0.20-1.00); TOTAL PROTEIN 6.1 g/dL (6.3-8.3)
[2019-06-06] MEDS ORDERED: NS 1,000 ML IV SCH (06:30)
[2019-06-06] MEDS: PLAVIX PO SCH (08:00)
[2019-06-06] MEDS: ASPIRIN EC PO SCH (08:00)
[2019-06-06] MEDS ORDERED: HEPARIN 1000 UNITS/NS 2,000 UNIT/1,000 ML IV.SOLN ONE (08:10)
[2019-06-06] MEDS ORDERED: NITROGLYCERIN ONE (08:10)
[2019-06-06] MEDS ORDERED: XYLOCAINE 1% ONE (08:16)
--- NOTE | 2019-06-06 08:51 | PROGRESS NOTE ---
DATE: 06/06/2019 SUBJECTIVE: Mr. Watkins has known ischemic heart disease. He was admitted to [facility] with unstable angina. He had a normal Lexiscan in February of this year. He denies any further chest pain, palpitations or anginal equivalents. Two sets of cardiac enzymes are negative. OBJECTIVE: Vitals: Temperature 98.1 degrees, pulse 54, respirations 15, blood pressure 127/72. CV: Regular rate and rhythm. Lungs: Clear. Abdomen: Soft, nontender with active bowel sounds. No hepatosplenomegaly. No abdominal bruits. ASSESSMENT AND PLAN: Unstable angina. He has a known history of ischemic heart disease. He has ruled out for myocardial ischemia by serial enzymes. He had a normal Lexiscan in February of this year. Given his persistent and recurrent episodes of chest pain, I believe that proceeding with a cardiac catheterization to more fully assess his coronary vasculature is indicated. He is scheduled for arteriogram today. cc: Nima Delgado MD
[2019-06-06] MEDS ORDERED: DEMEROL ONE (09:29)
[2019-06-06] MEDS ORDERED: VERSED ONE (09:30)
[2019-06-06] MEDS: NORCO-10 PO PRN (11:01)
--- NOTE | 2019-06-06 11:08 | CARDIAC CATH REPORT ---
DATE: 06/06/2019 PROCEDURES PERFORMED: 1. Left heart catheterization. 2. Selective Bilateral coronary arteriography. 3. Left ventriculography. 4. Opacification of right femoral artery with deployment of 6-Cymraes Angio-Seal device. PRIMARY PHYSICIAN: Dr. Riley Delgado PRIMARY BURNT LIME DRAWER: Wilfred HISTORY: This is a 79-year-old male presenting to the hospital with recurrent chest pain. He does have ventricular arrhythmia which has been handled by Dr. Roberto. He has had previous stents in 2010 and 2014. Because of his history of previous coronary disease, a heart catheterization was recommended prior to proceeding with more aggressive antiarrhythmic therapy. The benefits, risks and complications were discussed with the patient the day prior to the procedure. DESCRIPTION OF PROCEDURE: The patient came into the cardiac construction laborer in the fasting state. The right groin was prepped and draped in sterile fashion and anesthetized with lidocaine 1%. Versed 1 mg was given before and after the procedure, and 25 mg of Demerol was also given before and after the procedure for patient comfort and conscious sedation. The right groin was prepped and draped in a sterile fashion and anesthetized with lidocaine 1%. A 6-Cymraes sheath was inserted into the right femoral artery by following the modified Seldinger technique. Using a 6-Cymraes 4 catheter, the left coronary artery was selectively opacified in multiple projections. Thereafter, using a 6-Cymraes right Neri catheter, the right coronary artery was selective opacified in multiple projections. Thereafter, using a 6- Cymraes pigtail catheter, the aortic valve was negotiated. Left ventricular pressure was measured, and left ventriculogram was performed in the 30 degree GAONA projection with caudal angulation by injecting 36 mL of Omnipaque at 10 mL per second. At the end of the procedure, the pigtail catheter was removed, the sheath was flushed. The right femoral artery was opacified. Angio-Seal device was deployed. Hemostasis was accomplished appropriately. The patient tolerated the procedure well without complication. SUMMARY OF HEMODYNAMIC FINDINGS: Central aortic pressure initially was 139/53. Left ventricular pressure was 118/4. Post LV gram was 118/6. Final central aortic pressure was 126/47 with a mean of 36. Intracoronary nitroglycerin was given before the LV gram. SUMMARY OF ANGIOGRAPHIC FINDINGS: 1. Left main coronary artery. This vessel is anatomically normal. It divides into LAD, ramus intermedius and circumflex. 2. Left anterior descending coronary artery. This vessel shows a patent stent in its proximal segment. It gives rise to a septal branch and then gives rise to additional septal vessels. The LAD continues all the way down the apex of the left ventricle and is free of any critical obstruction. The previously stented segment is patent. 3. First diagonal branch/ramus intermedius. This vessel is arising seemingly from the left main. It shows a proximal area of stenosis that is somewhat diffuse in the order of 40% to 50%. This vessel gives rise to a septal branch. More distally, this vessel goes to the anterolateral wall of the left ventricle and is free of any critical obstruction. 4. Circumflex. The circumflex gives rise to a high lateral branch that is a bifurcating vessel with a moderate stenosis of about 40% to 50% in the midsection of the upper branch of the high lateral vessel. Nothing critical. The inferior branch is free of obstruction. Then the circumflex continues down the AV groove and gives rise to the sinus danyell branch, and then distally gives rise to a bifurcating AV branch. No critical lesions are noted in the circumflex system. 5. Right coronary artery. The right coronary artery is a large dominant vessel. It gives rise to a conus branch. Proximally it shows a 30% eccentric plaque. It gives rise to an acute marginal vessel. More distally, the vessel continues to show irregularities in its lumen, and there is a plaque in the terminal portion of the right coronary artery prior to its distal bifurcation of about 30% to 40%. The posterior descending branch shows mild diffuse disease, and the posterior ventricular lateral branch is a relatively large vessel free of any significant obstruction and gives rise to 3 smaller terminal branches. LEFT VENTRICULOGRAM: Left ventriculogram in the 30 degree GAONA projection with caudal angulation reveals normal left ventricular contractility, ejection fraction is 66%. No mitral regurgitation is noted. No wall motion abnormality is apparent in this study. OPACIFICATION OF RIGHT FEMORAL ARTERY: The right femoral artery is unremarkable. Angio-Seal device was deployed successfully. CONCLUSIONS: In summary, this study shows: 1. Moderate coronary artery disease with patent LAD stent and moderate proximal stenosis of the first diagonal branch/ramus intermedius branch in the order of 40% to 50%. Area of stenosis of about 40% to 50% also in the midportion of the superior branch of the circumflex high lateral. There is also moderate plaque in the right coronary artery. 2. Excellent left ventricular systolic function. 3. Normal LVEDP. 4. No aortic stenosis. No mitral regurgitation. 5. Unremarkable right femoral artery and successful deployment of a 6-Cymraes Angio-Seal device. RECOMMENDATIONS: The patient will be treated medically. He is going to follow up with Dr. Roberto regarding his ventricular arrhythmia. Coronary disease needs to be treated medically at this time. The patient will follow up with his primary carbon paper coating supervisor. cc: MD Nima Holt MD MTDD
--- NOTE | 2019-06-06 11:16 | EKG Report ---
Test Performed on : 06/06/2019 10:52:43 AM Test Reason : post cath Blood Pressure : / mmHG Vent. Rate : 054 BPM Atrial Rate : 054 BPM P-R Int : 166 ms QRS Dur : 094 ms QT Int : 452 ms P-R-T Axes : 048 042 055 degrees QTc Int : 428 ms Sinus bradycardia. Otherwise normal ECG When compared with ECG of 05-JUN-2019 11:05, No significant change was found Confirmed by Juan Pablo HAYDEN, Rikki Colin ([id number]) on 06/06/2019 1:18:35 PM
[2019-06-06 15:51] VITALS: BP 108/58
[2019-06-06] MEDS ORDERED: RANEXA PO SCH (21:00)
== END 2019-06-06 16:02 | disposition home or self-care (01) | DRG 287 ==
LOC: ED 16:31 → 3N 20:39 → 2N 06-05 13:55
PROVIDERS: ADMIT Internal Medicine; ATTEND Internal Medicine

== ENCOUNTER 2019-07-26 06:41 | Inpatient (IN) ==
[2019-07-25 10:01] LABS: HEMATOCRIT 42.8 % (42.0-52.0); HEMOGLOBIN 13.9 g/dL (14.0-18.0); MCH 29.9 PG (27-31); MCHC 32.5 g/dL (33-37); MPV 11.6 FL (7.4-10.4); RBC 4.65 XMIL (4.7-6.1); WBC 5.11 X1000 (4.8-10.8)
[2019-07-25 11:01] LABS: AGAP 10; BUN 13 mg/dL (8-22); CHLORIDE 103 mmol/L (98-107); COSMO 281; CREATININE 0.8 mg/dL (0.7-1.2); ESTIMATED GFR > 60; GLUCOSE 85 mg/dL (70-104); POTASSIUM 4.9 mmol/L (3.5-5.1); SODIUM 141 mmol/L (136-145); TCO2 28 mmol/L (25-35)
[2019-07-26] MEDS ORDERED: DIPRIVAN 1% ONE (07:13)
[2019-07-26] MEDS ORDERED: LR 1,000 ML ONE (07:15)
[2019-07-26] MEDS ORDERED: KEFZOL 1 GM/D5W 1 GM/50 ML IVPB ONE (07:15)
[2019-07-26] MEDS ORDERED: QUELICIN (DOSE) ONE (07:17)
[2019-07-26] MEDS ORDERED: ZEMURON ONE (07:18)
[2019-07-26] MEDS ORDERED: XYLOCAINE 1%/EPI 1:100,000 ONE (07:30)
[2019-07-26] MEDS ORDERED: MARCAINE 0.25% PF ONE (07:49)
[2019-07-26] MEDS ORDERED: EXPAREL 1.3% ONE (07:49)
[2019-07-26] MEDS ORDERED: ROBINUL ONE ×2 (08:12→09:23)
[2019-07-26] MEDS ORDERED: XYLOCAINE-MPF 2% ONE (08:12)
[2019-07-26] MEDS ORDERED: ZOFRAN ONE ×2 (08:12→09:01)
[2019-07-26] MEDS ORDERED: BRIDION ONE (08:41)
[2019-07-26 08:52] LABS: URINE SOURCE CATH
[2019-07-26] MEDS ORDERED: DECADRON ONE (09:01)
[2019-07-26 09:04] LABS: BILIRUBIN URINE NEGATIVE (NEGATIVE); BLOOD URINE NEGATIVE (NEGATIVE); COLOR STRAW; GLUCOSE URINE NEGATIVE (NEGATIVE); KETONE URINE NEGATIVE (NEGATIVE); LEUKOCYTES URINE NEGATIVE (NEGATIVE); NITRITE URINE NEGATIVE (NEGATIVE); PH URINE 7.5; PROTEIN URINE NEGATIVE (NEGATIVE); SP GRAVITY URINE 1.007; TURBIDITY URINE CLEAR (CLEAR); UROBILINOGEN URINE NORMAL (NORMAL)
[2019-07-26 09:06] LABS: UR EPITHELIAL CELLS <10 /HPF (<10); URINE BACTERIA NEGATIVE /HPF; URINE RBC <10 /HPF (<10); URINE WBC <10 /HPF (<10)
[2019-07-26] MEDS ORDERED: NEOSTIGMINE ONE (09:22)
[2019-07-26] MEDS: DILAUDID ONE ×2 (09:47→09:51)
[2019-07-26] MEDS: DEMEROL ONE (09:54)
--- NOTE | 2019-07-26 10:08 | OPERATIVE NOTE ---
PROCEDURE DATE: 07/26/2019 PROCEDURE: Open Witzel feeding jejunostomy. SURGEON: Cameron Street M.D. FISH HATCHERY MANAGER: Arlene. PREOPERATIVE DIAGNOSES: 1. Gastroparesis. 2. Weight loss. 3. Malnourishment. POSTOPERATIVE DIAGNOSES: 1. Gastroparesis. 2. Weight loss. 3. Malnourishment. DESCRIPTION OF PROCEDURE: Satisfactory general anesthesia was achieved. An abdominal wall TAP block was placed by Dr. Paniagua. The abdomen was then prepped and draped in a sterile fashion. We made a grecia above the umbilicus for 6 cm. We anesthetized the skin with 1% lidocaine with epinephrine. We made a vertical incision. We dissected through the subcutaneous tissue and through the midline fascia, entering the abdominal cavity. Upon entering the abdominal cavity, we identified the ligament of Treitz, and then chose the proximal jejunum. We then came up to the anterior abdominal wall easily. We placed a 3-0 silk pursestring stitch in the antimesenteric border of the small bowel, about a comfortable way away from the ligament of Treitz so that the jejunum would come up to the anterior abdominal wall easily. We then anesthetized the skin in the left midabdomen, made a small stab incision, achieved satisfactory hemostasis, and stuck a hemostat through the abdominal wall. We grasped the tip of the 14 Red Holland catheter, and brought it through the abdominal wall. We cut off the tip, and then left it in its position there. We then made a small jejunotomy, and introduced the distal end of the Red Holland catheter into the small bowel, and passed it distally into the jejunum. We secured the pursestring. We then closed the serosa of the small bowel over the Red Holland catheter for about 3 stitches, thereby causing a Witzel tunnel. We then brought the small bowel up to the anterior abdominal wall, and placed 2-0 silks in the abdominal wall, down to the bowel at every quadrant to completely externalize the Red Holland catheter so that the small bowel was attached to the anterior abdominal wall. We then placed a 2-0 silk on the abdominal wall externally to hold the catheter there, and secured the catheter outside the abdominal wall. We were satisfied that we had adequate length of Red Holland catheter in the small bowel. We were also satisfied that the tube was completely covered and externalized. We then proceeded to close the peritoneum with 2-0 chromic. We closed the fascia with #1 PDS. We injected 1% lidocaine with epinephrine once again, and irrigated the subcutaneous tissue. We then closed the skin with a 4-0 Polysorb subcuticular stitch. A yellow plug was placed in the Red Holland catheter. Sterile dressings were applied. He tolerated it well, and was sent to the recovery room in satisfactory condition. cc: MD Nima Parnell MD
[2019-07-26] MEDS ORDERED: DILAUDID IV PRN (10:24)
[2019-07-26] MEDS: NORCO-10 PO PRN ×2 (13:51→18:18)
[2019-07-26] MEDS: KEFZOL 500 MG in NS 50 ML IV SCH ×2 (15:35→23:31)
[2019-07-26] MEDS: PERIDEX MT SCH (20:47)
[2019-07-26] MEDS: DILAUDID IV PRN (20:48)
[2019-07-26] MEDS: CLINIMIX E 4.25%-5% SOLUTION 1,000 ML IV SCH (23:31)
[2019-07-26] MEDS: AMBIEN PO SCH (23:31)
[2019-07-27] MEDS: CLINIMIX E 4.25%-5% SOLUTION 1,000 ML IV SCH ×2 (02:53→13:47)
[2019-07-27] MEDS: DILAUDID IV PRN ×3 (02:54→15:25)
[2019-07-27] MEDS: NORCO-10 PO PRN ×3 (06:33→18:01)
[2019-07-27] MEDS: PERIDEX MT SCH ×2 (10:23→21:19)
[2019-07-27] MEDS: ASPIRIN EC PO SCH (10:23)
[2019-07-27] MEDS: PLAVIX PO SCH (10:23)
[2019-07-27] MEDS: PROTONIX IV SCH (10:26)
[2019-07-27] MEDS: SODIUM CHLORIDE 0.9% INJ SCH (10:26)
--- NOTE | 2019-07-27 10:42 | GENERAL SURGERY PROGRESS NOTE ---
DATE: 07/27/2019 Domenic slept okay last night. He seems serene and comfortable this morning. Has no complaints. The nurse said he complained about some reflux symptoms last night. The plan is to put him on Protonix. We will start him on clear liquids as he can tolerate and also put him on 25 mL an hour of Vital to try to reduce the risk for stopping up the tube early on. We will take his Chopra out today as well and ambulate him. cc: Cameron Street MD MTDD
[2019-07-27] MEDS: ZOFRAN IV PRN ×2 (11:47→17:11)
[2019-07-27] MEDS: DEMEROL ONE (12:05)
[2019-07-27] MEDS: DILAUDID ONE (12:05)
[2019-07-27] MEDS: AMBIEN PO SCH (21:19)
[2019-07-28] MEDS: PROTONIX IV SCH ×2 (06:17→06:53)
[2019-07-28] MEDS: DILAUDID IV PRN (06:17)
[2019-07-28] MEDS: SODIUM CHLORIDE 0.9% INJ SCH (06:17)
[2019-07-28] MEDS: CLINIMIX E 4.25%-5% SOLUTION 1,000 ML IV SCH ×2 (06:20→11:09)
[2019-07-28 07:13] LABS: AGAP 13; BUN 16 mg/dL (8-22); CALCIUM 9.3 mg/dL (8.8-10.2); CHLORIDE 102 mmol/L (98-107); COSMO 283; CREATININE 0.7 mg/dL (0.7-1.2); ESTIMATED GFR > 60; GLUCOSE 81 mg/dL (70-104); PHOSPHORUS 2.6 mg/dL (2.7-4.5); POTASSIUM 4.6 mmol/L (3.5-5.1); SODIUM 142 mmol/L (136-145); TCO2 27 mmol/L (25-35)
[2019-07-28] MEDS: NORCO-10 PO PRN ×3 (08:24→15:56)
[2019-07-28] MEDS: ASPIRIN EC PO SCH (08:24)
[2019-07-28] MEDS: PLAVIX PO SCH (08:24)
[2019-07-28] MEDS: PERIDEX MT SCH ×2 (08:24→21:35)
[2019-07-28] MEDS: ZOFRAN IV PRN (14:22)
--- NOTE | 2019-07-28 15:23 | GENERAL SURGERY PROGRESS NOTE ---
DATE: 07/28/2019 SUBJECTIVE: He is afebrile, heart rate 63, blood pressure 118/70. His bowels have not moved yet. He seems to be tolerating the tube feeding satisfactorily. We will increase the rate. Will cut down his Clinimix. We have contacted the home care service to assist at home. cc: Cameron Street MD
[2019-07-28] MEDS: AMBIEN PO SCH (21:35)
[2019-07-29] MEDS: DILAUDID IV PRN ×2 (06:35→11:11)
[2019-07-29 07:19] LABS: AGAP 12; ALB/GLOB RATIO 1.3; ALBUMIN 3.5 g/dL (3.5-5.0); ALKALINE PHOSPHATASE 66 U/L (32-122); BUN 16 mg/dL (8-22); CHLORIDE 103 mmol/L (98-107); COSMO 279; CREATININE 0.7 mg/dL (0.7-1.2); ESTIMATED GFR > 60; GLUCOSE 95 mg/dL (70-104); GOT 34 U/L (10-34); GPT 15 U/L (10-44); POTASSIUM 4.3 mmol/L (3.5-5.1); SODIUM 139 mmol/L (136-145); TCO2 24 mmol/L (25-35); TOTAL BILIRUBIN 0.43 mg/dL (0.20-1.00); TOTAL PROTEIN 6.1 g/dL (6.3-8.3)
[2019-07-29] MEDS: NORCO-10 PO PRN ×4 (08:14→20:46)
[2019-07-29] MEDS: PLAVIX PO SCH (08:15)
[2019-07-29] MEDS: SODIUM CHLORIDE 0.9% INJ SCH (08:15)
[2019-07-29] MEDS: ASPIRIN EC PO SCH (08:15)
[2019-07-29] MEDS: PROTONIX IV SCH (08:15)
[2019-07-29] MEDS: PERIDEX MT SCH ×2 (11:12→20:46)
[2019-07-29] MEDS: CLINIMIX E 4.25%-5% SOLUTION 1,000 ML IV SCH ×2 (11:12→20:41)
[2019-07-29] MEDS: ZOFRAN IV PRN ×3 (12:43→20:46)
[2019-07-29] MEDS: AMBIEN PO SCH (20:46)
--- NOTE | 2019-07-29 21:57 | GENERAL SURGERY PROGRESS NOTE ---
DATE: 07/29/2019 Domenic did not really tolerate 45 mL/hour todday. He got a little nauseated after lunch. His numbers look good. His weight is 157. His albumin is 3.5. PLAN: Discharge in the morning with home health to follow up at home, and for the nutritional people to begin their feedings at home. cc: Cameron Street MD
[2019-07-30] MEDS: ZOFRAN IV PRN (02:52)
[2019-07-30] MEDS: DILAUDID IV PRN (03:11)
[2019-07-30 07:56] VITALS: BP 136/71
[2019-07-30] MEDS: SODIUM CHLORIDE 0.9% INJ SCH (08:18)
[2019-07-30] MEDS: PROTONIX IV SCH (08:18)
[2019-07-30] MEDS: NORCO-10 PO PRN (08:19)
[2019-07-30] MEDS: PERIDEX MT SCH (08:19)
[2019-07-30] MEDS: ASPIRIN EC PO SCH (08:19)
[2019-07-30] MEDS: PLAVIX PO SCH (08:19)
--- NOTE | 2019-07-30 08:21 | GENERAL SURGERY PROGRESS NOTE ---
DATE: 07/30/2019 Domenic's night was fair. He said he did have a small bowel movement. Hemodynamics are satisfactory. We will stop his tube feeding today, flush his tube, and then cap it off. He will go home today. He is to contact the [facility] nutritional people and they will start his tube feedings at home and will call my office and then come back in a week. cc: Cameron Street MD MTDD
--- NOTE | 2019-08-20 20:01 | DISCHARGE SUMMARY ---
ADMISSION DATE: 07/26/2019 DISCHARGE DATE: 07/30/2019 PRIMARY DISCHARGE DIAGNOSES: 1. Weight loss and gastroparesis. 2. Recurrent nausea. PRIMARY PROCEDURE: Open Witzel feeding jejunostomy. HOSPITAL COURSE: Tre is a 79-year-old, who unfortunately has developed gastroparesis and cannot take much by mouth because of profound nausea. He has lost a significant amount of weight. This feeding jejunostomy is to provide nourishment on a long-term basis as needed. Following the hospitalization on the , he underwent the open Witzel feeding jejunostomy on the . Postoperatively he did generally well. We did give him Clinimix for IV nourishment. He was able to take what he wanted by mouth, which was not very much. By the , he did have a small bowel movement, his hemodynamics were satisfactory, and we had to start him on tube feedings which he tolerated up to about 25-30 mL an hour. We discussed [facility] nutritional people to see him as an outpatient to assist with his tube feedings. We did give him small bowel absorbed nutrition in the hospital to help reduce the risk for blockage of the feeding jejunostomy. cc: MD Nima Parnell MD MTDD
== END 2019-07-30 10:31 | disposition home health service (06) | DRG 391 ==
LOC: SURHOLD 06:41 → EDSTATUS 08:00 → 4N 09:17
PROVIDERS: ADMIT Surgery; ATTEND Surgery